=== PATIENT | female | born 1965 | race Two or more races ===

== ENCOUNTER 2016-03-30 11:58 | Emergency (ER) | payer BC ==
[~2016-03-30] VITALS: Ht 167.6 cm; Wt 102.1 kg
[~2016-03-30 11:58] MED LIST: ESTR0.3T PO; IBUP800T24 PO; LURA40TA OR; RANI1TAB4 PO
[2016-03-30] MEDS ORDERED: SODIUM CHLORIDE 0.9% 1,000 ML IV ONE (13:20)
[2016-03-30] MEDS ORDERED: cefTRIAXone 1GM/50ML D5W 50 ML IV ONE (13:30)
[2016-03-30 13:33] LABS: Urine RBC None Seen /hpf (0 - 4)
[2016-03-30 13:44] LABS: Basophils # (auto) 0 uL; Basophils % (auto) 0.3 % (0.0-2.0); Eosinophils # (auto) 0.1 uL; Eosinophils % (auto) 0.8 % (0.0-7.0); Hematocrit 42.6 % (36.0-46.0); Hemoglobin 14.6 g/dL (12.2-16.2); Lymphocytes # (auto) 2.3 uL; Lymphocytes % (auto) 20.5 % (10.0-50.0); Mean Corpuscular Hemoglobin 27.7 pg (28.0-32.0); Mean Corpuscular Hgb Conc. 34.2 g/dL (32.0-36.0); Mean Corpuscular Volume 81.1 fL (80.0-100.0); Mean Platelet Volume 8.6 fL (7.4-10.4); Monocytes # (auto) 0.7 uL; Neutrophils % (auto) 72.4 % (37.0-80.0); Platelet Count (auto) 361 10^3/uL (140-450); Red Cell Distribution Width 13.4 % (11.6-16.0); White Blood Cell 11.1 10^3/uL (4.4-10.8)
[2016-03-30 14:06] LABS: Albumin 3.4 g/dL (3.4-5.0); BUN/Creatinine Ratio 12.8; Calcium 8.7 mg/dL (8.5-10.1); Potassium 3.5 mmol/L (3.5-5.1)
[2016-03-30 14:09] LABS: Bilirubin, Total 0.5 mg/dL (0.2-1.0); Total Protein 7.2 g/dL (6.4-8.2)
[2016-03-30 14:23] LABS: Urine Bilirubin Negative (Negative); Urine Blood Negative /uL (Negative); Urine Color Yellow (Yellow); Urine Glucose Normal (Normal); Urine Ketone Negative (Negative); Urine Nitrite Negative (Negative); Urine Squamous Epithelial Cell FEW /hpf (<5); Urine Urobilinogen Normal (Negative)
[2016-03-30 14:25] VITALS: BP 121/74
[2016-03-30] MEDS ORDERED: TETANUS-DIPTH-ACEL PERTUSSIS 0.5ML SYRG IM ONE (15:00)
== END 2016-03-30 15:26 | disposition home or self-care (01) ==
LOC: ER 11:58
DX: L03.114 Cellulitis of left upper limb (principal); Z88.6 Allergy status to analgesic agent; Z79.899 Other long term (current) drug therapy
CPT/HCPCS: 36415; 80053; 81001; 85025; 87040; 90471; 90715; 96365; 99285; J0696; J7030

== ENCOUNTER 2020-10-28 21:42 | Inpatient (IN) | payer BC ==
[~2020-10-28] VITALS: Ht 172.7 cm; Wt 102.7 kg
[~2020-10-28 21:42] MED LIST changes: -IBUP800T24 PO; +IBUP800T27 PO; -RANI1TAB4 PO; +RANI75TA65 PO
[2020-10-28] MEDS ORDERED: dilTIAZem 25 MG/5 ML VIAL IV ONE (22:15)
[2020-10-28] MEDS ORDERED: METOPROLOL TARTRATE 1MG/1ML-5ML VIAL IV ONE (22:30)
[2020-10-28 22:40] LABS: Basophils # (auto) 0 10 ^3/uL (0-0.2); Basophils % (auto) 0.3 % (0.0-2.0); Eosinophils # (auto) 0.2 10 ^3/uL (0-0.8); Eosinophils % (auto) 1.6 % (0.0-7.0); Hematocrit 41.8 % (36.0-46.0); Hemoglobin 13.8 g/dL (12.2-16.2); Lymphocytes # (auto) 3.3 10 ^3/uL (0.4-5.4); Lymphocytes % (auto) 32.6 % (10.0-50.0); Mean Corpuscular Hemoglobin 27.3 pg (28.0-32.0); Mean Corpuscular Volume 82.7 fL (80.0-100.0); Monocytes # (auto) 0.5 10 ^3/uL (0-1.3); Monocytes % (auto) 5.2 % (0.0-12.0); Neutrophils # (auto) 6.1 10 ^3/uL (1.6-8.6); Neutrophils % (auto) 60.3 % (37.0-80.0); Nucleated Red Blood Cells % 0.1 %; Red Blood Cells 5.05 10^6/uL (4.0-5.20); Red Cell Distribution Width 13.8 % (11.8-14.3); White Blood Cell 10.2 10^3/uL (4.4-10.8)
[2020-10-28 22:57] LABS: Anion Gap 10 (5-15); Blood Urea Nitrogen 18 mg/dL (7-18); Calcium 8.6 mg/dL (8.5-10.1); Carbon Dioxide 21 mmol/L (21-32); Chloride 113 mmol/L (98-107); Glucose 155 mg/dL (74-106); Potassium 3.4 mmol/L (3.5-5.1); Sodium 144 mmol/L (136-145)
[2020-10-28 22:59] LABS: Alanine Aminotransferase 51 U/L (13-56); Aspartate Aminotransferase 34 U/L (15-37); BUN/Creatinine Ratio 20.9; GFR African American 87 mL/min; GFR Non-African American 72 mL/min
[2020-10-28 23:03] LABS: Alkaline Phosphatase 133 U/L (45-117); Bilirubin, Total 0.7 mg/dL (0.2-1.0); Total Protein 6.8 g/dL (6.4-8.2)
[2020-10-28] MEDS ORDERED: ESMOLOL HCL-NS 10MG/ML 250 ML IV SCH (23:30)
[2020-10-28] MEDS ORDERED: ESMOLOL HCL (10MG/ML) 10 ML VIAL IV ONE (23:30)
[2020-10-29 00:21] LABS: Urine Bacteria NONE SEEN /hpf (None Seen); Urine Blood TRACE /uL (Negative); Urine Specific Gravity 1.006 (1.001-1.035); Urine WBC 4 /hpf (0 - 5)
[2020-10-29] MEDS ORDERED: ACETAMINOPHEN 325 MG TAB PO ONE (03:45)
[2020-10-29] MEDS ORDERED: AMIODARONE 450mg/250ml AE 250 ML IV SCH (08:45)
[2020-10-29] MEDS ORDERED: ASPirin 81 mg TAB PO ONE (09:00)
[2020-10-29] MEDS ORDERED: NITROGLYCERIN 0.4 MG SL TAB SL PRN (09:00)
[2020-10-29] MEDS ORDERED: MORPHINE SULFATE INJECTION 2 MG/ML SYRG IV PRN (09:00)
[2020-10-29] MEDS ORDERED: POTASSIUM CHL 20 Meq TABLET PO ONE (09:00)
[2020-10-29] MEDS: ALPRAZolam 0.25 MG TAB PO PRN ×2 (09:17→22:13)
[2020-10-29 09:35] LABS: Cholesterol 143 mg/dL (< 200)
[2020-10-29 09:38] LABS: HDL Cholesterol 44 mg/dL (40-59); LDL Cholesterol 85 mg/dL (< 100); Triglycerides 113 mg/dL (< 150)
[2020-10-29] MEDS: METOPROLOL SUCCINATE XL 50 MG TAB PO SCH (10:05)
[2020-10-29] MEDS: FAMOTIDINE 20 MG TAB PO SCH (10:05)
[2020-10-29] MEDS: AMIODARONE 450mg/250ml AE 250 ML IV SCH ×2 (13:34→15:13)
[2020-10-29] MEDS ORDERED: AMIODARONE HCL 200 MG TAB PO ONE (15:30)
[2020-10-29 20:30] VITALS: BP 134/74
[2020-10-29] MEDS ORDERED: ATOR20TA PO (21:34)
[2020-10-29] MEDS ORDERED: TEMA30CA PO (21:34)
[2020-10-29] MEDS ORDERED: ALPR0.254 PO (21:34)
[2020-10-29] MEDS ORDERED: TRAM50TA2 PO (21:34)
[2020-10-29 22:00] VITALS: BP 134/74
[2020-10-30 05:00] VITALS: BP 121/73
[2020-10-30] MEDS: HYDROcodone-ACET 5/325MG TAB PO PRN ×2 (05:28→11:10)
[2020-10-30 07:12] LABS: Basophils # (auto) 0 10 ^3/uL (0-0.2); Basophils % (auto) 0.3 % (0.0-2.0); Eosinophils # (auto) 0.2 10 ^3/uL (0-0.8); Eosinophils % (auto) 2.7 % (0.0-7.0); Hematocrit 39.7 % (36.0-46.0); Hemoglobin 13.4 g/dL (12.2-16.2); Lymphocytes # (auto) 2.4 10 ^3/uL (0.4-5.4); Lymphocytes % (auto) 29.8 % (10.0-50.0); Mean Corpuscular Hemoglobin 27.5 pg (28.0-32.0); Mean Corpuscular Hgb Conc. 33.7 g/dL (32.0-36.0); Mean Corpuscular Volume 81.6 fL (80.0-100.0); Monocytes # (auto) 0.4 10 ^3/uL (0-1.3); Monocytes % (auto) 4.6 % (0.0-12.0); Neutrophils # (auto) 5.1 10 ^3/uL (1.6-8.6); Neutrophils % (auto) 62.6 % (37.0-80.0); Nucleated Red Blood Cells % 0.1 %; Red Blood Cells 4.87 10^6/uL (4.0-5.20); Red Cell Distribution Width 13.6 % (11.8-14.3); White Blood Cell 8.1 10^3/uL (4.4-10.8)
[2020-10-30 07:21] LABS: BUN/Creatinine Ratio 22.4; Calcium 9.3 mg/dL (8.5-10.1)
[2020-10-30] MEDS ORDERED: ADENOSINE 88 MG in GIVE UN-DILUTED 0 ML IV STA (08:24)
[2020-10-30 09:00] VITALS: BP 134/62
[2020-10-30] MEDS: FAMOTIDINE 20 MG TAB PO SCH (11:10)
[2020-10-30] MEDS: ASPirin 81 mg TAB PO SCH (11:10)
[2020-10-30] MEDS: METOPROLOL SUCCINATE XL 50 MG TAB PO SCH (11:10)
[2020-10-30] MEDS: AMIODARONE HCL 200 MG TAB PO SCH ×2 (11:10→21:24)
[2020-10-30] MEDS: ALPRAZolam 0.25 MG TAB PO PRN (11:12)
[2020-10-30 13:00] VITALS: BP 99/65
[2020-10-30] MEDS ORDERED: ONDANSETRON HCL 4 MG/2 ML VIAL IV PRN (16:00)
[2020-10-30 17:00] VITALS: BP 111/63
[2020-10-31 05:00] VITALS: BP 102/66
[2020-10-31] MEDS: HYDROcodone-ACET 5/325MG TAB PO PRN (08:30)
[2020-10-31] MEDS: METOPROLOL SUCCINATE XL 50 MG TAB PO SCH (09:08)
[2020-10-31] MEDS: FAMOTIDINE 20 MG TAB PO SCH (09:08)
[2020-10-31] MEDS: AMIODARONE HCL 200 MG TAB PO SCH (09:09)
[2020-10-31] MEDS: ASPirin 81 mg TAB PO SCH (09:09)
[2020-10-31 09:13] VITALS: BP 100/49
[2020-10-31 12:50] VITALS: BP 120/54
[2020-10-31] MEDS ORDERED: AMIO200T33 PO (16:04)
[2020-10-31] MEDS ORDERED: METO25TA36 PO (16:04)
[2020-10-31] MEDS ORDERED: ASPI-378 PO (16:04)
[2020-10-31 16:42] VITALS: BP 127/68
== END 2020-10-31 18:00 | disposition home or self-care (01) | DRG 310 ==
LOC: EDBD 21:42 → ER 21:48 → TELE 10-29 08:55 → TELE-WESTW 10-29 20:20
PROVIDERS: ADMIT Nurse Practitioner Acute Care; ATTEND Internal Medicine
DX: I48.91 Unspecified atrial fibrillation (principal); E66.9 Obesity, unspecified; E78.5 Hyperlipidemia, unspecified; E87.6 Hypokalemia; E88.09 Other disorders of plasma-protein metabolism, not elsewhere classified; F41.1 Generalized anxiety disorder; G89.29 Other chronic pain; Z20.822 Contact with and (suspected) exposure to COVID-19; Z90.710 Acquired absence of both cervix and uterus; Z68.34 Body mass index [BMI] 34.0-34.9, adult; Z85.72 Personal history of non-Hodgkin lymphomas
CPT/HCPCS: 36415; 71045; 78452; 80048; 80053; 80061; 81001; 83036; 83735; 83880; 84443; 84484; 85025; 85379; 87426; 93005; 93017; 93306; 96365; 96366; 96375; 99291; G0378; J0153; J2405

== ENCOUNTER 2022-03-02 08:35 | Emergency (ER) | payer BC ==
[~2022-03-02] VITALS: Ht 167.6 cm; Wt 115.2 kg
[~2022-03-02 08:35] MED LIST changes: +ALPR0.254 PO; +ASPI-378 PO; +ATOR20TA PO; -ESTR0.3T PO; -LURA40TA OR; -RANI75TA65 PO; +TEMA30CA PO; +TRAM50TA2 PO
[2022-03-02 09:21] LABS: Basophils # (auto) 0 10 ^3/uL (0-0.2); Basophils % (auto) 0.5 % (0.0-2.0); Eosinophils # (auto) 0.1 10 ^3/uL (0-0.8); Hematocrit 41.5 % (36.0-46.0); Lymphocytes % (auto) 24.7 % (10.0-50.0); Monocytes # (auto) 0.4 10 ^3/uL (0-1.3)
[2022-03-02 09:22] LABS: Eosinophils % (auto) 1.6 % (0.0-7.0); Hemoglobin 13.6 g/dL (12.2-16.2); Lymphocytes # (auto) 2.1 10 ^3/uL (0.4-5.4); Mean Corpuscular Hemoglobin 26.6 pg (28.0-32.0); Mean Corpuscular Hgb Conc. 32.7 g/dL (32.0-36.0); Mean Corpuscular Volume 81.3 fL (80.0-100.0); Monocytes % (auto) 4.4 % (0.0-12.0); Neutrophils % (auto) 68.8 % (37.0-80.0); Nucleated Red Blood Cells % 0.1 %; Red Blood Cells 5.11 10^6/uL (4.0-5.20); Red Cell Distribution Width 14.6 % (11.8-14.3); White Blood Cell 8.7 10^3/uL (4.4-10.8)
[2022-03-02 09:36] LABS: Albumin 3.4 g/dL (3.4-5.0); Calcium 8.7 mg/dL (8.5-10.1); Potassium 3.6 mmol/L (3.5-5.1)
[2022-03-02 09:39] LABS: BUN/Creatinine Ratio 15.4; Bilirubin, Total 0.7 mg/dL (0.2-1.0)
[2022-03-02 10:16] LABS: Urine Bacteria FEW /hpf (None Seen); Urine Blood Negative /uL (Negative); Urine Specific Gravity 1.007 (1.001-1.035); Urine WBC 14 /hpf (0 - 5)
[2022-03-02] MEDS ORDERED: CEPH-322 PO (17:01)
[2022-03-02 17:20] VITALS: BP 132/60
== END 2022-03-02 17:24 | disposition home or self-care (01) ==
LOC: ER 08:35
DX: S39.011A Strain of muscle, fascia and tendon of abdomen, initial encounter (principal); N39.0 Urinary tract infection, site not specified; I48.91 Unspecified atrial fibrillation; E78.5 Hyperlipidemia, unspecified; Z90.49 Acquired absence of other specified parts of digestive tract; Z90.710 Acquired absence of both cervix and uterus; X58.XXXA Exposure to other specified factors, initial encounter; Y93.89 Activity, other specified; Y92.89 Other specified places as the place of occurrence of the external cause; Y99.8 Other external cause status
CPT/HCPCS: 36415; 71260; 74177; 80053; 81001; 85025; 93005; 99285; Q9967

== ENCOUNTER 2022-09-09 13:02 | Inpatient (IN) | payer BC ==
[~2022-09-09] VITALS: Ht 167.6 cm; Wt 111.0 kg
[~2022-09-09 13:02] MED LIST changes: +CEPH250C PO; +IBUP-1456 PO; -IBUP800T27 PO
[2022-09-09 13:30] LABS: Eosinophils # (auto) 0.1 10 ^3/uL (0-0.8); Monocytes # (auto) 0.7 10 ^3/uL (0-1.3)
[2022-09-09 13:34] LABS: Basophils # (auto) 0 10 ^3/uL (0-0.2); Basophils % (auto) 0.3 % (0.0-2.0); Eosinophils % (auto) 1.1 % (0.0-7.0); Hematocrit 40.5 % (36.0-46.0); Hemoglobin 13.6 g/dL (12.2-16.2); Lymphocytes # (auto) 3.5 10 ^3/uL (0.4-5.4); Lymphocytes % (auto) 30.1 % (10.0-50.0); Mean Corpuscular Hemoglobin 26.2 pg (28.0-32.0); Mean Corpuscular Hgb Conc. 33.5 g/dL (32.0-36.0); Mean Corpuscular Volume 78.3 fL (80.0-100.0); Monocytes % (auto) 6.1 % (0.0-12.0); Neutrophils # (auto) 7.2 10 ^3/uL (1.6-8.6); Neutrophils % (auto) 62.4 % (37.0-80.0); Nucleated Red Blood Cells % 0.2 %; Red Blood Cells 5.17 10^6/uL (4.0-5.20); Red Cell Distribution Width 15.1 % (11.8-14.3); White Blood Cell 11.5 10^3/uL (4.4-10.8)
[2022-09-09 13:49] LABS: Albumin 3.4 g/dL (3.4-5.0); Magnesium 2.3 mg/dL (1.6-2.6); Potassium 3.6 mmol/L (3.5-5.1)
[2022-09-09 13:51] LABS: BUN/Creatinine Ratio 13.6 (10.0-20.0)
[2022-09-09 16:04] LABS: Urine Bacteria NONE SEEN /hpf (None Seen); Urine Blood Negative /uL (Negative); Urine Specific Gravity 1.006 (1.001-1.035); Urine WBC 1 /hpf (0 - 5)
[2022-09-09] MEDS ORDERED: METOPROLOL TARTRATE 25 MG TAB PO ONE (18:00)
[2022-09-09] MEDS ORDERED: MORPHINE SULFATE INJ 2 MG/ml SYRG IV PRN (18:00)
[2022-09-09] MEDS ORDERED: ENOXAPARIN SOD 60 MG/0.6 ML SYRINGE SC ONE (18:00)
[2022-09-09] MEDS ORDERED: NITROGLYCERIN 0.4 MG SL TAB SL PRN (18:00)
[2022-09-09 18:26] LABS: Cholesterol 152 mg/dL (< 200)
[2022-09-09 18:29] LABS: HDL Cholesterol 43 mg/dL (40-59); LDL Cholesterol 78 mg/dL (< 100); Triglycerides 254 mg/dL (< 150)
[2022-09-09] MEDS: SODIUM CHLORIDE 0.9% 1,000 ML IV SCH (19:56)
[2022-09-09 20:05] VITALS: PULSE 81; RESP 20; O2SAT 96
[2022-09-09] MEDS: METOPROLOL TARTRATE 25 MG TAB PO SCH (22:00)
[2022-09-09] MEDS ORDERED: ATORVASTATIN 20 MG TAB PO SCH (22:00)
[2022-09-09 22:12] VITALS: BP 111/58; PULSE 70; RESP 18; TEMP 98; O2SAT 97
[2022-09-10] VITALS (7 sets, daily range): BP systolic 105–116; BP diastolic 47–81; PULSE 68–82; RESP 16–18; TEMP 97.8–98.4; O2SAT 96–97
[2022-09-10 07:02] LABS: Basophils # (auto) 0 10 ^3/uL (0-0.2); Basophils % (auto) 0.4 % (0.0-2.0); Eosinophils # (auto) 0.1 10 ^3/uL (0-0.8); Eosinophils % (auto) 1.3 % (0.0-7.0); Hematocrit 39.4 % (36.0-46.0); Hemoglobin 13.3 g/dL (12.2-16.2); Lymphocytes # (auto) 2.3 10 ^3/uL (0.4-5.4); Lymphocytes % (auto) 30.6 % (10.0-50.0); Mean Corpuscular Hemoglobin 26.7 pg (28.0-32.0); Mean Corpuscular Hgb Conc. 33.7 g/dL (32.0-36.0); Mean Corpuscular Volume 79.2 fL (80.0-100.0); Monocytes # (auto) 0.5 10 ^3/uL (0-1.3); Monocytes % (auto) 6.2 % (0.0-12.0); Neutrophils # (auto) 4.6 10 ^3/uL (1.6-8.6); Neutrophils % (auto) 61.5 % (37.0-80.0); Red Blood Cells 4.97 10^6/uL (4.0-5.20); Red Cell Distribution Width 15.2 % (11.8-14.3); White Blood Cell 7.4 10^3/uL (4.4-10.8)
[2022-09-10 07:20] LABS: Potassium 3.9 mmol/L (3.5-5.1)
[2022-09-10 07:27] LABS: Bilirubin, Total 1.3 mg/dL (0.2-1.0); Calcium 8.4 mg/dL (8.5-10.1); Total Protein 6.6 g/dL (6.4-8.2)
[2022-09-10] MEDS ORDERED: ADENOSINE 95 MG in GIVE UN-DILUTED 0 ML IV ONE (08:00)
[2022-09-10] MEDS ORDERED: ENOXAPARIN SOD 60 MG/0.6 ML SYRINGE SC SCH (08:00)
[2022-09-10] MEDS ORDERED: ASPirin-EC 81 mg tab PO SCH (10:00)
[2022-09-10] MEDS: METOPROLOL TARTRATE 25 MG TAB PO SCH (10:00)
[2022-09-10] MEDS: SODIUM CHLORIDE 0.9% 1,000 ML IV SCH (10:28)
[2022-09-10] MEDS: ACETAMINOPHEN 325 MG TAB PO PRN (11:14)
[2022-09-10 11:31] LABS: Cholesterol 135 mg/dL (< 200); HDL Cholesterol 41 mg/dL (40-59); LDL Cholesterol 71 mg/dL (< 100); Triglycerides 211 mg/dL (< 150)
[2022-09-10] MEDS ORDERED: ATORVASTATIN 20 MG TAB PO SCH (22:00)
[2022-09-11 05:00] VITALS: BP 97/42; PULSE 74; RESP 18; TEMP 97.9; O2SAT 96
[2022-09-11] MEDS: ACETAMINOPHEN 325 MG TAB PO PRN (05:47)
[2022-09-11 06:34] LABS: Potassium 3.7 mmol/L (3.5-5.1)
[2022-09-11 06:43] LABS: Albumin 3.1 g/dL (3.4-5.0); Calcium 8.8 mg/dL (8.5-10.1); Magnesium 2.2 mg/dL (1.6-2.6); Total Protein 6.7 g/dL (6.4-8.2)
[2022-09-11 07:13] LABS: Basophils # (auto) 0 10 ^3/uL (0-0.2); Basophils % (auto) 0.5 % (0.0-2.0); Eosinophils # (auto) 0.1 10 ^3/uL (0-0.8); Hemoglobin 12.9 g/dL (12.2-16.2); Mean Corpuscular Hemoglobin 26.8 pg (28.0-32.0); Monocytes # (auto) 0.4 10 ^3/uL (0-1.3); Neutrophils # (auto) 4.7 10 ^3/uL (1.6-8.6)
[2022-09-11 07:15] LABS: Eosinophils % (auto) 1.5 % (0.0-7.0); Hematocrit 38.2 % (36.0-46.0); Lymphocytes # (auto) 2.2 10 ^3/uL (0.4-5.4); Lymphocytes % (auto) 29.7 % (10.0-50.0); Mean Corpuscular Hgb Conc. 33.8 g/dL (32.0-36.0); Mean Corpuscular Volume 79.4 fL (80.0-100.0); Monocytes % (auto) 5.5 % (0.0-12.0); Neutrophils % (auto) 62.8 % (37.0-80.0); Nucleated Red Blood Cells % 0.1 %; Red Cell Distribution Width 15.2 % (11.8-14.3); White Blood Cell 7.4 10^3/uL (4.4-10.8)
[2022-09-11 08:00] VITALS: BP 117/56; PULSE 76; PULSE 91; RESP 16; TEMP 97.9; O2SAT 95
[2022-09-11] MEDS ORDERED: ENOXAPARIN SOD 40 MG/0.4 ML SYRINGE SC SCH (10:00)
[2022-09-11] MEDS ORDERED: METOPROLOL SUCCINATE XL 50 MG TAB PO SCH (10:00)
[2022-09-11 11:37] VITALS: BP 116/47; PULSE 68; TEMP 36.6
[2022-09-11 12:17] VITALS: BP 116/47; PULSE 68; TEMP 36.6
== END 2022-09-11 12:03 | disposition home or self-care (01) | DRG 281 ==
LOC: EDUNIT# 13:02 → ER 13:02 → EDBD 13:02 → TELE 17:55 → TELE-CENTR 21:13
PROVIDERS: ADMIT Internal Medicine; ATTEND Internal Medicine
DX: I49.9 Cardiac arrhythmia, unspecified (principal); I21.A1 Myocardial infarction type 2; Z68.41 Body mass index [BMI] 40.0-44.9, adult; E66.01 Morbid (severe) obesity due to excess calories; E78.5 Hyperlipidemia, unspecified; F32.A Depression, unspecified; I10 Essential (primary) hypertension; I48.0 Paroxysmal atrial fibrillation; R73.03 Prediabetes; Z79.82 Long term (current) use of aspirin; Z80.0 Family history of malignant neoplasm of digestive organs; Z80.7 Family history of other malignant neoplasms of lymphoid, hematopoietic and related tissues; Z83.3 Family history of diabetes mellitus; Z90.710 Acquired absence of both cervix and uterus; Z90.49 Acquired absence of other specified parts of digestive tract; Z85.72 Personal history of non-Hodgkin lymphomas
CPT/HCPCS: 36415; 71045; 78452; 80053; 80061; 81001; 82306; 82607; 83036; 83735; 83880; 84443; 84484; 85025; 85379; 93005; 93017; 93306; 96372; G0378; J0153

== ENCOUNTER 2022-10-21 16:58 | Emergency (ER) | payer BC ==
[~2022-10-21] VITALS: Ht 167.6 cm; Wt 120.0 kg
[2022-10-21 18:14] LABS: Basophils % (auto) 0.5 % (0.0-2.0); Eosinophils # (auto) 0.1 10 ^3/uL (0-0.8)
[2022-10-21 18:15] LABS: Basophils # (auto) 0 10 ^3/uL (0-0.2); Hematocrit 39.2 % (36.0-46.0); Hemoglobin 13.3 g/dL (12.2-16.2); Lymphocytes # (auto) 2.1 10 ^3/uL (0.4-5.4); Lymphocytes % (auto) 20.9 % (10.0-50.0); Mean Corpuscular Hemoglobin 26.8 pg (28.0-32.0); Mean Corpuscular Volume 78.9 fL (80.0-100.0); Monocytes # (auto) 0.6 10 ^3/uL (0-1.3); Monocytes % (auto) 5.8 % (0.0-12.0); Neutrophils # (auto) 7.1 10 ^3/uL (1.6-8.6); Neutrophils % (auto) 71.8 % (37.0-80.0); Red Blood Cells 4.97 10^6/uL (4.0-5.20); White Blood Cell 9.9 10^3/uL (4.4-10.8)
[2022-10-21 18:34] LABS: Alanine Aminotransferase 32 U/L (7-40); Albumin 4.1 g/dL (3.2-4.8); Alkaline Phosphatase 131 U/L (46-116); Anion Gap 5 (5-15); Aspartate Aminotransferase 22 U/L (13-40); BUN/Creatinine Ratio 17.5 (10.0-20.0); Bilirubin, Total 1.1 mg/dL (0.2-1.0); Blood Urea Nitrogen 17 mg/dL (9-23); Calcium 9.3 mg/dL (8.7-10.4); Carbon Dioxide 27 mmol/L (20-30); Chloride 107 mmol/L (98-107); Glucose 117 mg/dL (74-106); Potassium 4.4 mmol/L (3.5-5.1); Sodium 139 mmol/L (136-145); Total Protein 6.6 g/dL (5.7-8.2)
[2022-10-21 18:45] LABS: INR 1.05 (0.9-1.15); Partial Thromboplastin Time 28.9 SEC (24.5-34.5)
[2022-10-21 21:20] LABS: Urine Bacteria FEW /hpf (None Seen); Urine Blood Negative /uL (Negative); Urine Clarity Clear (Clear); Urine Color Yellow (Yellow); Urine Mucus FEW (None Seen); Urine Protein, UAD TRACE (Negative); Urine Specific Gravity 1.029 (1.001-1.035); Urine WBC 1 /hpf (0 - 5); Urine pH 6.5 (5.0-8.0)
[2022-10-21] MEDS ORDERED: ASPirin 81 mg TAB PO ONE (22:00)
[2022-10-21 23:00] VITALS: BP 122/67; PULSE 76; RESP 18; TEMP 98.2; O2SAT 99
== END 2022-10-21 23:10 | disposition home or self-care (01) ==
LOC: EDBD 16:58 → ER 16:58
DX: R07.89 Other chest pain (principal); I48.91 Unspecified atrial fibrillation; F32.9 Major depressive disorder, single episode, unspecified; E78.5 Hyperlipidemia, unspecified; Z90.710 Acquired absence of both cervix and uterus; Z90.49 Acquired absence of other specified parts of digestive tract; Z79.899 Other long term (current) drug therapy; Z79.82 Long term (current) use of aspirin; Z88.8 Allergy status to other drugs, medicaments and biological substances
CPT/HCPCS: 36415; 71045; 80053; 81001; 83880; 84443; 84484; 85025; 85610; 85730; 93005

== ENCOUNTER 2022-10-26 05:37 | Emergency (ER) | payer BC ==
[~2022-10-26] VITALS: Ht 167.6 cm; Wt 111.1 kg
[2022-10-26 06:15] LABS: Basophils # (auto) 0 10 ^3/uL (0-0.2); Eosinophils # (auto) 0.1 10 ^3/uL (0-0.8); Mean Corpuscular Hemoglobin 26.8 pg (28.0-32.0); Monocytes # (auto) 0.5 10 ^3/uL (0-1.3)
[2022-10-26 06:18] LABS: Basophils % (auto) 0.4 % (0.0-2.0); Eosinophils % (auto) 1.2 % (0.0-7.0); Hematocrit 39.7 % (36.0-46.0); Hemoglobin 13.3 g/dL (12.2-16.2); Lymphocytes % (auto) 27.3 % (10.0-50.0); Mean Corpuscular Hgb Conc. 33.6 g/dL (32.0-36.0); Mean Corpuscular Volume 79.9 fL (80.0-100.0); Monocytes % (auto) 4.3 % (0.0-12.0); Neutrophils # (auto) 7.4 10 ^3/uL (1.6-8.6); Neutrophils % (auto) 66.8 % (37.0-80.0); Red Blood Cells 4.97 10^6/uL (4.0-5.20); Red Cell Distribution Width 14.7 % (11.8-14.3); White Blood Cell 11.1 10^3/uL (4.4-10.8)
[2022-10-26 06:27] LABS: INR 1.06 (0.9-1.15); Partial Thromboplastin Time 27.8 SEC (24.5-34.5); Prothrombin Time 11.1 sec (9.3-11.8)
[2022-10-26] MEDS ORDERED: ONDANSETRON HCL 4 MG/2 ML VIAL IV ONE (06:30)
[2022-10-26] MEDS ORDERED: MORPHINE SULFATE 4 MG/ML SYR/VIAL IV ONE (06:30)
[2022-10-26 06:36] LABS: Alanine Aminotransferase 30 U/L (7-40); Alkaline Phosphatase 132 U/L (46-116); Anion Gap 7 (5-15); Aspartate Aminotransferase 22 U/L (13-40); BUN/Creatinine Ratio 15.7 (10.0-20.0); Bilirubin, Total 1.2 mg/dL (0.2-1.0); Blood Urea Nitrogen 13 mg/dL (9-23); Calcium 9.2 mg/dL (8.7-10.4); Carbon Dioxide 24 mmol/L (20-30); Chloride 105 mmol/L (98-107); Glucose 116 mg/dL (74-106); Magnesium 2.2 mg/dL (1.6-2.6); Potassium 3.9 mmol/L (3.5-5.1); Sodium 136 mmol/L (136-145); Total Protein 6.4 g/dL (5.7-8.2)
[2022-10-26] MEDS ORDERED: IOHEXOL 300 MG/ML 100ML BOTTLE IJ ONE (07:09)
[2022-10-26] MEDS ORDERED: SODIUM CHLORIDE 0.9% 1,000 ML IV ONE (07:30)
[2022-10-26 07:41] VITALS: PULSE 69; RESP 16; O2SAT 97
[2022-10-26] MEDS ORDERED: ZOFR4T PO (09:27)
[2022-10-26] MEDS ORDERED: FAMO20TA10 PO (09:27)
[2022-10-26] MEDS ORDERED: FAMOTIDINE (10MG/ML) 2ML VL IV ONE ×2 (09:30)
[2022-10-26 09:44] VITALS: BP 106/49; PULSE 60; RESP 16; TEMP 97.4; O2SAT 98
== END 2022-10-26 10:21 | disposition home or self-care (01) ==
LOC: EDBD 05:37 → ER 05:37
DX: K57.30 Diverticulosis of large intestine without perforation or abscess without bleeding (principal); K21.9 Gastro-esophageal reflux disease without esophagitis; Z90.49 Acquired absence of other specified parts of digestive tract; Z90.710 Acquired absence of both cervix and uterus; Z88.8 Allergy status to other drugs, medicaments and biological substances
CPT/HCPCS: 36415; 71045; 74177; 80053; 83690; 83735; 83880; 84484; 85025; 85379; 85610; 85730; 93005; 96361; 96374; 96375; 99285; J2270; J2405; J3490; J7030; Q9967

== ENCOUNTER 2022-12-19 10:20 | Emergency (ER) | payer BC ==
[~2022-12-19] VITALS: Ht 167.6 cm; Wt 115.0 kg
[~2022-12-19 10:20] MED LIST changes: +FAMO20TA10 PO; +ZOFR4T PO
[2022-12-19 11:16] VITALS: BP 150/74; PULSE 88; RESP 18; TEMP 98; O2SAT 97
[2022-12-19] MEDS ORDERED: KETOROLAC TROMETH 60MG/2ML VIAL IM ONE (11:30)
[2022-12-19] MEDS ORDERED: MELO7.5T7 PO (11:37)
== END 2022-12-19 11:38 | disposition home or self-care (01) ==
LOC: ER 10:20
DX: S83.8X2A Sprain of other specified parts of left knee, initial encounter (principal); M17.12 Unilateral primary osteoarthritis, left knee; E78.5 Hyperlipidemia, unspecified; I48.91 Unspecified atrial fibrillation; Z90.49 Acquired absence of other specified parts of digestive tract; Z90.710 Acquired absence of both cervix and uterus; W19.XXXA Unspecified fall, initial encounter; Y93.89 Activity, other specified; Y92.89 Other specified places as the place of occurrence of the external cause; Y99.8 Other external cause status
CPT/HCPCS: 73562; 96372; 99283; J1885

== ENCOUNTER 2023-10-21 08:01 | Inpatient (IN) | payer BC ==
[~2023-10-21] VITALS: Ht 167.6 cm; Wt 120.0 kg
[2023-10-21] VITALS (11 sets, daily range): BP systolic 129–145; BP diastolic 61–68; PULSE 91–108; RESP 18–20; TEMP 97.8–97.9; O2SAT 94–100
[~2023-10-21 08:01] MED LIST changes: +MELO7.5T7 PO
[2023-10-21] MEDS: ALBUTEROL SULF 2.5 MG/0.5ML(0.5%) NEB SOLN ONE (08:24)
[2023-10-21] MEDS: ALBUTEROL SULF 2.5 MG/0.5ML(0.5%) NEB SOLN NEB ONE ×2 (08:44→15:31)
[2023-10-21] MEDS: SODIUM CHLORIDE 0.9% 1,000 ML IV ONE (09:09)
[2023-10-21] MEDS: methylPREDNISolone SOD SUCC 125 MG/2 ML VL IV ONE (09:13)
[2023-10-21 09:23] LABS: Basophils # (auto) 0 10 ^3/uL (0-0.2); Basophils % (auto) 0.1 % (0.0-2.0); Eosinophils # (auto) 0 10 ^3/uL (0-0.8); Hematocrit 42.2 % (36.0-46.0); Hemoglobin 14.3 g/dL (12.2-16.2); Lymphocytes # (auto) 1.9 10 ^3/uL (0.4-5.4); Lymphocytes % (auto) 17.2 % (10.0-50.0); Mean Corpuscular Hemoglobin 27.2 pg (28.0-32.0); Mean Corpuscular Hgb Conc. 33.8 g/dL (32.0-36.0); Mean Corpuscular Volume 80.4 fL (80.0-100.0); Monocytes # (auto) 0.2 10 ^3/uL (0-1.3); Monocytes % (auto) 1.7 % (0.0-12.0); Neutrophils # (auto) 9.1 10 ^3/uL (1.6-8.6); Platelet Count (auto) 360 10^3/uL (140-450); Red Blood Cells 5.25 10^6/uL (4.0-5.20); Red Cell Distribution Width 14.8 % (11.8-14.3); White Blood Cell 11.2 10^3/uL (4.4-10.8)
[2023-10-21] MEDS: MAGNESIUM SULFATE 1GM/100ML 100 ML IV SCH (09:33)
[2023-10-21 09:38] LABS: Chloride 107 mmol/L (98-107); Potassium 3.9 mmol/L (3.5-5.1); Sodium 138 mmol/L (136-145)
[2023-10-21 09:39] LABS: Anion Gap 10 (5-15); Carbon Dioxide 21 mmol/L (20-30)
[2023-10-21 09:44] LABS: Blood Urea Nitrogen 12 mg/dL (9-23); Glucose 142 mg/dL (74-106)
[2023-10-21 09:45] LABS: Magnesium 2.2 mg/dL (1.6-2.6)
[2023-10-21] MEDS ORDERED: PRED1PAK9 PO (10:12)
[2023-10-21] MEDS ORDERED: ALBU0.084 NEB (10:12)
[2023-10-21] MEDS ORDERED: DOCUSATE SOD 100 MG CAP PO PRN (12:30)
[2023-10-21] MEDS ORDERED: NITROGLYCERIN 0.4 MG SL TAB SL PRN (12:30)
[2023-10-21] MEDS ORDERED: ONDANSETRON HCL 4 MG/2 ML VIAL IV PRN (12:30)
[2023-10-21] MEDS: FAMOTIDINE (10MG/ML) 2ML VL IV ONE (13:56)
[2023-10-21] MEDS: SODIUM CHLORIDE 0.9% 1,000 ML IV SCH (13:56)
[2023-10-21] MEDS: methylPREDNISolone SOD SUCC 125 MG/2 ML VL IV SCH (15:16)
[2023-10-21 15:23] LABS: INR 1.02 (0.9-1.15); Prothrombin Time 10.8 sec (9.3-11.8)
[2023-10-21] MEDS: IPRATROPIUM BROM 0.5 MG/2.5ML INH SOL NEB ONE (15:31)
[2023-10-21] MEDS ORDERED: ATOR40TA52 PO (18:09)
[2023-10-21] MEDS ORDERED: LORA-622 PO (18:12)
[2023-10-21] MEDS ORDERED: RANO500T3 PO (18:12)
[2023-10-21] MEDS ORDERED: METO25TA36 PO (18:12)
[2023-10-21] MEDS ORDERED: DULO60CA41 PO (18:12)
[2023-10-21] MEDS ORDERED: MONT-8 PO (18:12)
[2023-10-21] MEDS ORDERED: DICY10CA PO (18:12)
[2023-10-21] MEDS ORDERED: ISOS1TAB28 PO (18:12)
[2023-10-21] MEDS: IPRATROPIUM BROM 0.5 MG/2.5ML INH SOL NEB SCH (18:49)
[2023-10-21] MEDS: ALBUTEROL SULF 2.5 MG/0.5ML(0.5%) NEB SOLN NEB SCH (18:49)
[2023-10-21] MEDS ORDERED: ENOXAPARIN SOD 120 MG/0.8 ML SYRINGE SC SCH (22:00)
[2023-10-21] MEDS: MORPHINE SULFATE INJ 2 MG/ml SYRG IV PRN (23:13)
[2023-10-22] VITALS (18 sets, daily range): BP systolic 100–132; BP diastolic 39–69; PULSE 80–110; RESP 16–20; TEMP 97.5–99; O2SAT 94–100
[2023-10-22 08:29] LABS: Basophils # (auto) 0 10 ^3/uL (0-0.2); Basophils % (auto) 0.1 % (0.0-2.0); Eosinophils # (auto) 0 10 ^3/uL (0-0.8); Hematocrit 38.8 % (36.0-46.0); Hemoglobin 13.3 g/dL (12.2-16.2); Lymphocytes # (auto) 1.5 10 ^3/uL (0.4-5.4); Lymphocytes % (auto) 7.2 % (10.0-50.0); Mean Corpuscular Hemoglobin 27.7 pg (28.0-32.0); Mean Corpuscular Hgb Conc. 34.2 g/dL (32.0-36.0); Monocytes # (auto) 0.7 10 ^3/uL (0-1.3); Monocytes % (auto) 3.4 % (0.0-12.0); Neutrophils # (auto) 18.2 10 ^3/uL (1.6-8.6); Neutrophils % (auto) 89.3 % (37.0-80.0); Platelet Count (auto) 337 10^3/uL (140-450); Red Blood Cells 4.79 10^6/uL (4.0-5.20); Red Cell Distribution Width 15.2 % (11.8-14.3); White Blood Cell 20.4 10^3/uL (4.4-10.8)
[2023-10-22 08:39] LABS: Alanine Aminotransferase 32 U/L (7-40); Albumin 4.3 g/dL (3.2-4.8); Alkaline Phosphatase 123 U/L (46-116); Anion Gap 9 (5-15); Aspartate Aminotransferase 12 U/L (13-40); BUN/Creatinine Ratio 11.5 (10.0-20.0); Blood Urea Nitrogen 10 mg/dL (9-23); Calcium 9.4 mg/dL (8.7-10.4); Carbon Dioxide 21 mmol/L (20-30); Chloride 108 mmol/L (98-107); Glucose 170 mg/dL (74-106); Potassium 3.8 mmol/L (3.5-5.1); Sodium 138 mmol/L (136-145)
[2023-10-22 08:40] LABS: Bilirubin, Total 0.6 mg/dL (0.2-1.0)
[2023-10-22] MEDS: IBUPROFEN 600 MG TAB PO PRN (11:36)
[2023-10-22] MEDS: ATORVASTATIN 20 MG TAB PO SCH (11:37)
[2023-10-22] MEDS: ASPirin-EC 81 mg tab PO SCH (11:38)
[2023-10-22] MEDS: ENOXAPARIN SOD 40 MG/0.4 ML SYRINGE SC SCH (11:38)
[2023-10-22] MEDS: FAMOTIDINE (10MG/ML) 2ML VL IV SCH (11:38)
[2023-10-22] MEDS: ATORVASTATIN 20 MG TAB PO ONE (13:30)
[2023-10-22] MEDS: KETOROLAC TROMETH 30 MG/ML 1ML VIAL IV PRN (14:42)
[2023-10-22] MEDS ORDERED: METOPROLOL TARTRATE 25 MG TAB PO ONE (16:00)
[2023-10-22] MEDS: METOPROLOL SUCCINATE XL 50 MG TAB PO ONE (17:03)
[2023-10-22] MEDS: ALPRAZolam 0.25 MG TAB PO PRN (20:30)
[2023-10-23] VITALS (19 sets, daily range): BP systolic 102–131; BP diastolic 47–73; PULSE 55–108; RESP 16–19; TEMP 97.6–98.9; O2SAT 94–99
[2023-10-23] MEDS: DULoxetine HCL 30 MG CAP PO SCH (09:59)
[2023-10-23] MEDS: METOPROLOL SUCCINATE XL 50 MG TAB PO SCH (10:02)
[2023-10-23] MEDS ORDERED: ALPRAZolam 0.25 MG TAB PO PRN (14:30)
[2023-10-23] MEDS ORDERED: RANO500T3 PO (14:54)
[2023-10-23] MEDS: ISOSORBIDE MONONITRATE ER 60 MG TAB PO ONE (16:04)
[2023-10-23] MEDS: ACETYLCYSTEINE 10 %(100MG/ML) SOL 4ML NEB SCH (19:34)
[2023-10-23] MEDS: RANOLAZINE ER 500 MG TAB PO SCH (22:17)
[2023-10-23] MEDS: VALPROATE INJ 250 MG in SODIUM CHL 0.9% 50 ML IV SCH (22:23)
[2023-10-24] VITALS (20 sets, daily range): BP systolic 106–139; BP diastolic 45–66; PULSE 67–103; RESP 14–18; TEMP 97.8–98.7; O2SAT 92–100
[2023-10-24] MEDS: ISOSORBIDE MONONITRATE ER 60 MG TAB PO SCH (09:57)
[2023-10-25] VITALS (12 sets, daily range): BP systolic 137–147; BP diastolic 55–76; PULSE 85–102; RESP 15–20; TEMP 37.2; O2SAT 93–100
[2023-10-25] MEDS: HYDROcodone-ACET 5/325MG TAB PO ONE (03:33)
[2023-10-25] MEDS ORDERED: DOXY1CAP57 PO (12:38)
[2023-10-25] MEDS ORDERED: METH4PAK PO (12:38)
[2023-10-25] MEDS ORDERED: DIVA-92 PO (12:38)
[2023-10-25] MEDS ORDERED: ALBU1NEB5 IN (12:38)
[2023-10-25] MEDS ORDERED: ATORVASTATIN 20 MG TAB PO SCH (22:00)
== END 2023-10-25 14:49 | disposition home or self-care (01) | DRG 189 ==
LOC: ER 08:01 → TELE 12:40 → TELE-WESTW 17:09
PROVIDERS: ADMIT Nurse Practitioner Family; ATTEND Internal Medicine Geriatric Medicine
DX: J96.21 Acute and chronic respiratory failure with hypoxia (principal); J45.901 Unspecified asthma with (acute) exacerbation; E87.20 Acidosis, unspecified; Z68.41 Body mass index [BMI] 40.0-44.9, adult; D72.829 Elevated white blood cell count, unspecified; I48.91 Unspecified atrial fibrillation; E78.5 Hyperlipidemia, unspecified; F32.A Depression, unspecified; I10 Essential (primary) hypertension; E66.01 Morbid (severe) obesity due to excess calories; R73.03 Prediabetes; G43.909 Migraine, unspecified, not intractable, without status migrainosus; Z83.3 Family history of diabetes mellitus; Z90.49 Acquired absence of other specified parts of digestive tract; Z79.01 Long term (current) use of anticoagulants; Z90.710 Acquired absence of both cervix and uterus; I25.2 Old myocardial infarction; Z85.72 Personal history of non-Hodgkin lymphomas; Z80.7 Family history of other malignant neoplasms of lymphoid, hematopoietic and related tissues; Z80.0 Family history of malignant neoplasm of digestive organs
CPT/HCPCS: 36415; 70450; 71045; 80048; 80053; 83735; 83880; 84484; 85025; 85379; 85610; 93005; 93306; 94640; 94644; 96365; 96375; G0378; J1885; J3490

== ENCOUNTER 2024-06-24 11:56 | Emergency (ER) | payer BC ==
[~2024-06-24] VITALS: Ht 167.6 cm; Wt 116.9 kg
[~2024-06-24 11:56] MED LIST changes: +ALBU0.084 NEB; +ALBU1NEB5 IN; -ATOR20TA PO; +ATOR40TA52 PO; -CEPH250C PO; +DICY10CA PO; +DIVA-92 PO; +DOXY1CAP57 PO; +DULO60CA41 PO; +ISOS1TAB28 PO; +LORA-622 PO; +METH4PAK PO; +METO25TA36 PO; +MONT-8 PO; +PRED1PAK9 PO; +RANO500T3 PO
[2024-06-24 12:41] LABS: Urine Bacteria None Seen /hpf (None Seen)
[2024-06-24 12:50] LABS: Urine Blood TRACE /uL (Negative); Urine Clarity Clear (Clear); Urine Protein, UAD Negative (Negative); Urine Specific Gravity 1.007 (1.001-1.035); Urine Squamous Epithelial Cell None Seen /hpf (<5); Urine Urobilinogen Normal (Negative); Urine WBC 4 /HPF (0-5)
[2024-06-24 12:51] LABS: Urine Color Light-Yellow (Yellow)
--- NOTE | 2024-06-24 12:53 | ED.PDOC ---
GI ASSESSMENT HPI Comments 58-year-old female presents the ER with prior medical history of UTI, AFib, cancer, depression, high lipids; surgical history of cholecystectomy, hysterectomy, urethra repair and the chief complaint of abdominal pain. Patient reports on having epigastric pain which radiates to the right upper flank and to the mid back. Notes on having dark green stool, with nausea. Denies chills, fever, /V/D, SOB, CP. No other associated symptoms, modifiers, recent injuries or sick contacts present at this time. Chief Complaint: Abdominal Pain Time Seen by MD: 12:35 Primary Care Provider: Deborah Reviewed Notes: Nurses Notes, Medications, Allergies Allergies: Coded Allergies: Lansoprazole (Verified Allergy, Unknown, 03/08/15) Home Meds Active Scripts Albuterol Sulfate (Albuterol Sulfate (5 mg/ml) 0.5%) 1 Neb Neb, 1 NEB IN Q6HP PRN for 30 Days, #120 INH Prov:MELANIE BALDWIN MD 10/25/23 Doxycycline Monohydrate (Doxycycline Monohydrate) 100 Mg Cap, 1 CAP PO BID, #14 CAP Prov:MELANIE BALDWIN MD 10/25/23 Methylprednisolone (Medrol Dosepak) 4 Mg Harsh, 4 MG PO UD, #21 TAB UAD Prov:MELANIE BALDWIN MD 10/25/23 Divalproex Sodium (Depakote Er) 250 Mg Tab, 1 TAB PO QPM, #30 TAB 0 Refills Prov:MELANIE BALDWIN MD 10/25/23 Prednisone (Prednisone) 10 Mg Harsh, 20 MG PO BID for 10 Days, #20 PACK Prov:LALY ELSIE MD 10/21/23 Albuterol Sulfate (Albuterol Sulfate) 0.083 % Neb, 1 VIAL NEB Q4HPRN PRN, #50 VIAL Prov:LALY ELISE MD 10/21/23 Meloxicam (Meloxicam) 7.5 Mg Tab, 1 TAB PO TID, #30 TAB Prov:FAUSTINA GARCIAS 12/19/22 Famotidine (PEPCID TABLET) 20 Mg Tb, 1 TAB PO BID for 30 Days, #60 TAB 5 Refills Prov:LUIS ENRIQUE CORBIN MD 10/26/22 Ondansetron Odt 4MG Tab (ZOFRAN PO) 4 Mg Tb, 4 MG PO TID for 5 Days, #15 TAB ODT TAB-DISSOLVE IN MOUTH, THEN SWALLOW Prov:LUIS ENRIQUE CORBIN MD 10/26/22 Aspirin (TRE ASPIRIN EC LOW DOSE) 81 Mg Tab, 1 TAB PO DAILY, #30 TAB Prov:MARI SUAREZ MD 10/31/20 Reported Medications Ranolazine (Ranolazine ER) 500 Mg Tab, 500 MG PO BID, TAB 10/23/23 Montelukast Sodium (MONTELUKAST SODIUM) 10 Mg Tab, 1 TAB PO DAILY, #30 TAB 5 Refills 10/21/23 Dicyclomine Hcl (BENTYL CAPSULE) 10 Mg Cp, 2 CAP PO TIDPRN, #90 CAP 11 Refills 10/21/23 Loratadine (Claritin) 10 Mg Tab, 1 TAB PO DAILY, #30 TAB 5 Refills 10/21/23 Isosorbide Mononitrate (Isosorbide Mononitrate Er) 30 Mg Tab, 1 TAB PO DAILY, #30 TAB 5 Refills 10/21/23 Metoprolol Succinate (Toprol Xl) 25 Mg Tab, 1 TAB PO DAILY, #30 TAB 5 Refills 10/21/23 Duloxetine Hcl (Cymbalta) 60 Mg Cap, 1 CAP PO DAILY, #90 CAP 3 Refills 10/21/23 Atorvastatin Calcium (ATORVASTATIN CALCIUM) 40 Mg Tab, 1 TAB PO DAILY, #30 TAB 5 Refills 10/21/23 Temazepam (Temazepam) 30 Mg Cap, 1 CAP PO QPM PRN for FOR INSOMNIA, #30 CAP 10/29/20 Alprazolam (Alprazolam) 0.25 Mg Tab, 1 TAB PO TID, #90 TAB 10/29/20 Tramadol Hcl (Tramadol Hcl) 50 Mg Tab, 50 MG PO Q4HP PRN for MODERATE PAIN (4-6 PAIN SCALE), MG 10/29/20 Ibuprofen (Ibuprofen) 800 Mg Tab, 1 TAB PO PRN, #90 TAB 1 Refill 03/08/15 Information Source: Patient Mode of Arrival: Ambulatory Timing: Hours Duration: Since onset, Hours Prehospital treatment: None Quality: Aching Vomitus: None Stool: Green (Green) Severity: Moderate Recent: None Recent Hx of: None Pain Location: Epigastric, RUQ Associated sign and symptoms: Nausea, Abdominal Pain, Other (Dark green stool) Past Medical History PAST MEDICAL HISTORY: AFIB, Cancer, Depression, High Lipids, UTI'S Surgical History: Cholecystectomy, Hysterectomy Surgical History (Other): Urethra repair 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: No Pertinent 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 Family History Family History: Reviewed,noncontributory to illness, Unknown Social History Smoker: Non-Smoker Alcohol: Unknown Drugs: Denies Drug Use Lives In: Home Constitutional: denies: chills, diaphoresis, fatigue, fever, malaise, sweats, weakness, others EENTM: denies: blurred vision, double vision, ear bleeding, ear discharge, ear drainage, ear pain, ear ringing, eye pain, eye redness, hearing loss, mouth pain, mouth swelling, nasal discharge, nose bleeding, nose congestion, nose pain, photophobia, tearing, throat pain, throat swelling, voice changes, others Respiratory: denies: cough, hemoptysis, orthopnea, SOB at rest, shortness of breath, SOB with excertion, stridor, wheezing, others Cardiovascular: denies: chest pain, dizzy spells, diaphoresis, Dyspnea on exertion, edema, irregular heart beat, left arm pain, lightheadedness, palpitations, PND, syncope, others Gastrointestinal: reports: abdominal pain, others (Dark green stool); denies: abdomen distended, blood streaked bowels, constipated, diarrhea, dysphagia, difficulty swallowing, hematemesis, melena, nausea, poor appetite, poor fluid intake, rectal bleeding, rectal pain, vomiting Genitourinary: reports: flank pain (Right upper); denies: abnormal vagina bleeding, burning, dyspareunia, dysuria, frequency, hematuria, incontinence, pain, , vagina discharge, urgency, others Neurological: denies: dizziness, fainting, headache, left sided numbness, left sided weakness, numbness, paresthesia, pre-existing deficit, right sided numbne ss, right sided weakness, seizure, speech problems, tingling, tremors, weakness, others Musculoskeletal: denies: back pain, gout, joint pain, joint swelling, muscle pain, muscle stiffness, neck pain, others Integumetry: denies: bruises, change in color, change in hair/nails, dryness, laceration, lesions, lumps, rash, wounds, others Allergic/Immunocompromised: denies: Difficulty Healing, Frequent Infections, Hives, Itching, others Hematologic/Lymphatic: denies: anemia, blood clots, easy bleeding, easy bruising, swollen glands, others Endocrine: denies: excessive hunger, excessive sweating, excessive thirst, excessive urination, flushing, intolerance to cold, intolerance to heat, unexplained weight gain, unexplained weight loss, others Psychiatric: denies: anxiety, bipolar disorder, depression, hopeless, panic disorder, schizophrenia, sleepless, suicidal, others All Other Systems: Reviewed and Negative Physical Exam Exam Comments Diffuse right upper quadrant/epigastric palpation, no CVA bilaterally General Appearance: No Apparent Distress, Normal HEENT: Normal ENT Inspection, Pharynx Normal, TMs Normal Neck: Full Range of Motion, Non-Tender, Normal, Normal Inspection Respiratory: Chest Non-Tender, Lungs Clear, No Accessory Muscle Use, No Res piratory Distress, Normal Breath Sounds Cardiovascular: No Edema, No JVD, No Murmur, No Gallop, Normal Peripheral Pulses, Regular Rate/Rhythm Breast Exam: Deferred Gastrointestinal: No Organomegaly, Non Tender, No Pulsatile Mass, Normal Bowel Sounds, Soft Genitalia: Deferred Pelvic: Deferred Rectal: Deferred Extremities: No calf tenderness, Normal capillary refill, Normal inspection, Normal range of motion, Non-tender, No pedal edema Musculoskeletal : Apperance: Normal Neurologic: Alert, 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 Was a procedure done?: No GI differential Dx Differential Diagnosis: Other Other Differential Diagnosis PANCREATITIS, BOWEL OBSTRUCTION, GASTRITIS, ESOPHAGEAL HERNIA, CHOLECYSTITIS, AND A PILE COMMON BILE DUCT STONE, CONSTIPATION X-Ray, Labs, Meds, VS Vital Signs Date Time Temp Pulse Resp B/P (MAP) Pulse Ox O2 Delivery O2 Flow Rate FiO2 06/24/24 13:26 85 19 96 Room Air* 0 21 06/24/24 13:25 89 18 99 Room Air 06/24/24 13:25 98.5 89 18 116/49 (71) 99 98.5 06/24/24 13:18 89 17 116/49 06/24/24 12:53 86 06/24/24 12:29 98.5 86 20 141/58 (85) 97 98.5 06/24/24 12:17 86 Lab Test 06/24/24 13:34 06/24/24 12:43 06/24/24 12:05 Range/Units Troponin I High Sensitivity < 3 L < 3 L </=34 ng/L White Blood Count 10.4 4.4-10.8 10^3/uL Red Blood Count 5.39 H 4.0-5.20 10^6/uL Hemoglobin 13.8 12.2-16.2 g/dL Hematocrit 41.0 36.0-46.0 % Mean Corpuscular Volume 76.0 L 80.0-100.0 fL Mean Corpuscular Hemoglobin 25.6 L 28.0-32.0 pg Mean Corpuscular Hemoglobin Concent 33.7 32.0-36.0 g/dL Red Cell Distribution Width 15.4 H 11.8-14.3 % Platelet Count 337 140-450 10^3/uL Mean Platelet Volume 8.2 6.9-10.8 fL Neutrophils (%) (Auto) 70.2 37.0-80.0 % Lymphocytes (%) (Auto) 23.8 10.0-50.0 % Monocytes (%) (Auto) 4.6 0.0-12.0 % Eosinophils (%) (Auto) 1.0 0.0-7.0 % Basophils (%) (Auto) 0.4 0.0-2.0 % Neutrophils # (Auto) 7.3 1.6-8.6 10 ^3/uL Lymphocytes # (Auto) 2.5 0.4-5.4 10 ^3/uL Monocytes # (Auto) 0.5 0-1.3 10 ^3/uL Eosinophils # (Auto) 0.1 0-0.8 10 ^3/uL Basophils # (Auto) 0 0-0.2 10 ^3/uL Nucleated Red Blood Cells 0.1 % Sodium Level 142 136-145 mmol/L Potassium Level 4.2 3.5-5.1 mmol/L Chloride Level 107 98-107 mmol/L Carbon Dioxide Level 26 20-31 mmol/L Anion Gap 9 5-15 Blood Urea Nitrogen 14 9-23 mg/dL Creatinine 0.83 0.550-1.02 mg/dL Glomerular Filtration Rate Calc 81 >90 mL/min BUN/Creatinine Ratio 16.9 10.0-20.0 Serum Glucose 113 H 74-106 mg/dL Calcium Level 9.3 8.7-10.4 mg/dL Total Bilirubin 1.0 0.2-1.0 mg/dL Aspartate Amino Transferase (AST) 21 13-40 U/L Alanine Aminotransferase (ALT) 30 7-40 U/L Alkaline Phosphatase 135 H 46-116 U/L Total Protein 6.8 5.7-8.2 g/dL Albumin 4.5 3.2-4.8 g/dL Lipase 43 12-53 U/L Urine Color Light-yellow Yellow Urine Clarity Clear Clear Urine pH 7.0 5.0-9.0 Urine Specific [place] 1.007 1.001-1.035 Urine Protein Negative Negative Urine Ketones Negative Negative Urine Blood Trace H Negative /uL Urine Nitrite Negative Negative Urine Bilirubin Negative Negative Urine Urobilinogen Normal Negative mg/dL Urine Leukocyte Esterase 1+ Negative /uL Urine RBC 1 0 - 4 /hpf Urine Microscopic WBC 4 0-5 /HPF Urine Squamous Epithelial Cells None seen <5 /hpf Urine Bacteria None seen None Seen /hpf Urine Glucose Normal Normal mg/dL Current Medications Medications (Trade) Dose Ordered Sig/Dirk Route Start Time Stop Time Status Last Admin Ondansetron HCl (Zofran) 4 mg ONCE ONCE IV 06/24/24 12:45 06/24/24 12:46 DC 06/24/24 13:17 Morphine Sulfate 4 mg ONCE ONCE IV 06/24/24 12:45 06/24/24 12:46 DC 06/24/24 13:18 58-YEAR-OLD FEMALE PRESENTS HERE WITH RIGHT UPPER QUADRANT ABDOMINAL PAIN. SHE HAS A HISTORY OF CHOLECYSTECTOMY IN THE PAST. I CONSIDERED POSSIBLE PANCREATITIS, COMMON BILE DUCT STONE IN THE STUMP, SMALL-BOWEL OBSTRUCTION, PYELONEPHRITIS. AT THIS TIME SHE DOES NOT HAVE LEFT CVA TENDERNESS OR RIGHT CVA TENDERNESS. BLOOD WORK HAS BEEN DONE WHICH DOES DEMONSTRATE RESULTS ARE GENERALLY WITHIN NORMAL LIMITS. HOWEVER SHE DOES HAVE SOME TRACE BLOOD. PATIENT AT THIS TIME DOES PREFER TO TREAT FOR POSSIBLE UTI AND I WILL BE TREATING WITH KEFLEX. ADDITIONALLY A CT ABDOMEN PELVIS HAS BEEN DONE WITH EVIDENCE OF CONSTIPATION FOR WHICH I HAVE TOLD HER TO USE MIRALAX 1 CAP FULL MIXED WITH 8 OZ OF WATER 3 TIMES A DAY AND THEN 1 CAP FULL MIXED WITH 8 OZ OF WATER ONCE A DAY UNTIL SYMPTOMS ARE RESOLVED. SHE ALSO HAS EVIDENCE OF ESOPHAGEAL HERNIA. ADVISED HER TO SEE HER PCP AND POTENTIALLY GI OR SURGERY. PATIENT AGREEABLE TO THE PLAN. AT THIS TIME ABDOMEN IS SOFT NONTENDER DOUBT EMERGENT PATHOLOGY AT THIS TIME. PATIENT HAS BEEN GIVEN ZOFRAN MORPHINE IN THE ER.Diagnostic Imaging Report : [id number] Signed PATIENT: SOHAN KABAACCT: [id number] UNIT: [id number] : 1965 LOC: ER ROOM / BED: / AGE / SEX: 58 / F ADM STATUS: REG ER SERVICE 1236 ORDERING PHYSICIAN: NADEEN APODACA MD PROCEDURE(s): ABPL - CT AB PEL WO CON-NO ORAL OR IV REASON: RO SBO ORDER NUMBER(s): [id number], ACCESSION NUMBER(s): [id number] EXAM: CT Abdomen and Pelvis Without Intravenous Contrast CLINICAL INDICATION: RO SBO TECHNIQUE: Axial computed tomography images of the abdomen and pelvis without intravenous contrast. This CT exam was performed using one or more of the following dose reduction techniques: automated exposure control, adjustment of the mA and/or kV according to patient size, and/or use of iterative reconstruction technique. CONTRAST: RADIATION DOSE: CTDIvol = 27.1 mGy, DLP = 1422.36 mGy-cm COMPARISON: [facility] on DOS: 10/29/20 FINDINGS: LUNG BASES: Unremarkable. No mass. No consolidation. MEDIASTINUM: Small esophageal hiatal hernia. ABDOMEN: LIVER: Fatty infiltration of the liver. GALLBLADDER AND BILE DUCTS: Gallbladder is surgically absent. No ductal dilation. PANCREAS: Unremarkable. No ductal dilation. SPLEEN: Unremarkable. No splenomegaly. ADRENALS: Unremarkable. No mass. KIDNEYS AND URETERS: Unremarkable. No stones within either kidney. No hydronephrosis. STOMACH AND BOWEL: Fecal retention in the colon consistent with constipation. Colonic diverticulosis without acute diverticulitis. No obstruction. PELVIS: APPENDIX: No findings to suggest acute appendicitis. BLADDER: Unremarkable. No stones. REPRODUCTIVE: Unremarkable as visualized. ABDOMEN and PELVIS: INTRAPERITONEAL SPACE: Unremarkable. No free air. No significant fluid collection. BONES/JOINTS: Severe endplate degenerative changes and disc disease of L5-S1. No acute fracture. No dislocation. SOFT TISSUES: Umbilical hernia containing fat. VASCULATURE: Unremarkable. No abdominal aortic aneurysm. LYMPH NODES: Unremarkable. No enlarged lymph nodes. OTHER FINDINGS: . . IMPRESSION: 1. Small esophageal hiatal hernia. 2. Fecal retention in the colon consistent with constipation. 3. Umbilical hernia containing fat. 4. No obstructive uropathy. 5. Colonic diverticulosis without acute diverticulitis. ATED BY: BARRY GODOY MD DICTATED DATE/TIME: 06/24/241324 SIGNED BY: BARRY GODOY MD SIGNED DATE/TIME: 06/24/241324 CC: Time of 1ST Reevaluation: 13:05 Reevaluation 1ST: Unchanged Patient Education/Counseling: Diagnosis, Treatment, Prognosis Family Education/Counseling: No Family Present Departure 1 Departure Time of Disposition: 14:14 Impression: Primary Impression: Constipation Qualified Codes: K59.00 - Constipation, unspecified Additional Impressions: Esophageal hernia UTI (urinary tract infection) Qualified Codes: N30.01 - Acute cystitis with hematuria Umbilical hernia Qualified Codes: K42.9 - Umbilical hernia without obstruction or gangrene Disposition: 01 HOME / SELF CARE / HOMELESS Condition: Fair Additional Instructions: FOLLOW UP WITH THE PRIMARY CARE PHYSICIAN IN 2-3 DAYS. RETURN TO THE ER IF SYMPTOMS WORSEN OR PERSIST. TAKE 1 CAPFUL OF MIRALAX 3 TIMES A DAY FOR THE 1ST 2 DAYS. THEN YOU CAN TAKE 1 CAP FULL OF MIRALAX ONCE A DAY NEEDED UNTIL YOU BOWEL MOVEMENTS BECOME NORMAL. Diagnostic Imaging Report : [id number] Signed PATIENT: SOHAN KABA ACCT: [id number] UNIT: [id number] : 1965 LOC: ER ROOM / BED: / AGE / SEX: 58 / F ADM STATUS: REG ER SERVICE 1236 ORDERING PHYSICIAN: NADEEN APODACA MD PROCEDURE(s): ABPL - CT AB PEL WO CON-NO ORAL OR IV REASON: RO SBO ORDER NUMBER(s): [id number], ACCESSION NUMBER(s): [id number] EXAM: CT Abdomen and Pelvis Without Intravenous Contrast CLINICAL INDICATION: RO SBO TECHNIQUE: Axial computed tomography images of the abdomen and pelvis without intravenous contrast. This CT exam was performed using one or more of the following dose reduction techniques: automated exposure control, adjustment of the mA and/or kV according to patient size, and/or use of iterative reconstruction technique. CONTRAST: RADIATION DOSE: CTDIvol = 27.1 mGy, DLP = 1422.36 mGy-cm COMPARISON: [facility] on DOS: 10/29/20 FINDINGS: LUNG BASES: Unremarkable. No mass. No consolidation. MEDIASTINUM: Small esophageal hiatal hernia. ABDOMEN: LIVER: Fatty infiltration of the liver. GALLBLADDER AND BILE DUCTS: Gallbladder is surgically absent. No ductal dilation. PANCREAS: Unremarkable. No ductal dilation. SPLEEN: Unremarkable. No splenomegaly. ADRENALS: Unremarkable. No mass. KIDNEYS AND URETERS: Unremarkable. No stones within either kidney. No hydronephrosis. STOMACH AND BOWEL: Fecal retention in the colon consistent with constipation. Colonic diverticulosis without acute diverticulitis. No obstruction. PELVIS: APPENDIX: No findings to suggest acute appendicitis. BLADDER: Unremarkable. No stones. REPRODUCTIVE: Unremarkable as visualized. ABDOMEN and PELVIS: INTRAPERITONEAL SPACE: Unremarkable. No free air. No significant fluid collection. BONES/JOINTS: Severe endplate degenerative changes and disc disease of L5-S1. No acute fracture. No dislocation. SOFT TISSUES: Umbilical hernia containing fat. VASCULATURE: Unremarkable. No abdominal aortic aneurysm. LYMPH NODES: Unremarkable. No enlarged lymph nodes. OTHER FINDINGS: . . IMPRESSION: 1. Small esophageal hiatal hernia. 2. Fecal retention in the colon consistent with constipation. 3. Umbilical hernia containing fat. 4. No obstructive uropathy. 5. Colonic diverticulosis without acute diverticulitis. ATED BY: BARRY GODOY MD DICTATED DATE/TIME: 06/24/241324 SIGNED BY: BARRY GODOY MD SIGNED DATE/TIME: 06/24/24 1325 CC: e-Prescriptions Cephalexin (KEFLEX CAPSULE) 250 Mg Cp 500 MG PO Q12HR for 10 Days, #20 TAB Prov: NADEEN APODACA MD 06/24/24 Critical Care Note Critical Care Time?: No Stability Stability form required: No I personally scribed for NADEEN APODACA MD ([email or web address]) on 06/24/24 at 12:53. Electronically submitted by Jose Raul Phillips ([email or web address]). NADEEN APODACA MD June 24, 2024 12:53
[2024-06-24 12:55] LABS: Basophils # (auto) 0 10 ^3/uL (0-0.2); Basophils % (auto) 0.4 % (0.0-2.0); Eosinophils # (auto) 0.1 10 ^3/uL (0-0.8); Hemoglobin 13.8 g/dL (12.2-16.2); Lymphocytes # (auto) 2.5 10 ^3/uL (0.4-5.4); Monocytes # (auto) 0.5 10 ^3/uL (0-1.3); Neutrophils # (auto) 7.3 10 ^3/uL (1.6-8.6); White Blood Cell 10.4 10^3/uL (4.4-10.8)
[2024-06-24 12:57] LABS: Lymphocytes % (auto) 23.8 % (10.0-50.0); Mean Corpuscular Hemoglobin 25.6 pg (28.0-32.0); Mean Corpuscular Hgb Conc. 33.7 g/dL (32.0-36.0); Monocytes % (auto) 4.6 % (0.0-12.0); Neutrophils % (auto) 70.2 % (37.0-80.0); Nucleated Red Blood Cells % 0.1 %; Platelet Count (auto) 337 10^3/uL (140-450); Red Blood Cells 5.39 10^6/uL (4.0-5.20); Red Cell Distribution Width 15.4 % (11.8-14.3)
--- NOTE | 2024-06-24 13:13 | DVH ---
INDICATION: RO BILE DUCT STUMP STONE TECHNIQUE: Multiple real-time sonographic images of the right upper quadrant abdomen were obtained. COMPARISON: None FINDINGS: Liver is heterogeneous in echogenicity. The liver measures 18.6 cm. No intrahepatic biliary ductal dilatation is noted. Status post cholecystectomy. The common duct measures 0.6 cm and is unremarkable. The right kidney measures 9.3 cm. No hydronephrosis. The pancreas is not well visualized due to obscuration from bowel gas. IMPRESSION: 1. Status post cholecystectomy. 2. No bile duct stone is seen 3. Hepatic steatosis.
[2024-06-24 13:14] LABS: Alanine Aminotransferase 30 U/L (7-40); Albumin 4.5 g/dL (3.2-4.8); Anion Gap 9 (5-15); Aspartate Aminotransferase 21 U/L (13-40); BUN/Creatinine Ratio 16.9 (10.0-20.0); Blood Urea Nitrogen 14 mg/dL (9-23); Calcium 9.3 mg/dL (8.7-10.4); Carbon Dioxide 26 mmol/L (20-31); Lipase 43 U/L (12-53); Potassium 4.2 mmol/L (3.5-5.1); Sodium 142 mmol/L (136-145); Total Protein 6.8 g/dL (5.7-8.2)
[2024-06-24 13:17] LABS: Alkaline Phosphatase 135 U/L (46-116); Chloride 107 mmol/L (98-107); Glucose 113 mg/dL (74-106)
[2024-06-24] MEDS: ONDANSETRON HCL 4 MG/2 ML VIAL IV ONE (13:17)
[2024-06-24] MEDS: MORPHINE SULFATE 4 MG/ML SYR/VIAL IV ONE (13:18)
[2024-06-24 13:25] VITALS: TEMP 98.5
[2024-06-24 13:26] VITALS: PULSE 85; RESP 19; O2SAT 96
--- NOTE | 2024-06-24 13:27 | DVH ---
EXAM: CT Abdomen and Pelvis Without Intravenous Contrast CLINICAL INDICATION: RO SBO TECHNIQUE: Axial computed tomography images of the abdomen and pelvis without intravenous contrast. This CT exam was performed using one or more of the following dose reduction techniques: automated exposure control, adjustment of the mA and/or kV according to patient size, and/or use of iterative r econstruction technique. CONTRAST: RADIATION DOSE: CTDIvol = 27.1 mGy, DLP = 1422.36 mGy-cm COMPARISON: [facility] on DOS: 10/29/20 FINDINGS: LUNG BASES: Unremarkable. No mass. No consolidation. MEDIASTINUM: Small esophageal hiatal hernia. ABDOMEN: LIVER: Fatty infiltration of the liver. GALLBLADDER AND BILE DUCTS: Gallbladder is surgically absent. No ductal dilation. PANCREAS: Unremarkable. No ductal dilation. SPLEEN: Unremarkable. No splenomegaly. ADRENALS: Unremarkable. No mass. KIDNEYS AND URETERS: Unremarkable. No stones within either kidney. No hydronephrosis. STOMACH AND BOWEL: Fecal retention in the colon consistent with constipation. Colonic diverticulos is without acute diverticulitis. No obstruction. PELVIS: APPENDIX: No findings to suggest acute appendicitis. BLADDER: Unremarkable. No stones. REPRODUCTIVE: Unremarkable as visualized. ABDOMEN and PELVIS: INTRAPERITONEAL SPACE: Unremarkable. No free air. No significant fluid collection. BONES/JOINTS: Severe endplate degenerative changes and disc disease of L5-S1. No acute fracture. No dislocation. SOFT TISSUES: Umbilical hernia containing fat. VASCULATURE: Unremarkable. No abdominal aortic aneurysm. LYMPH NODES: Unremarkable. No enlarged lymph nodes. OTHER FINDINGS: . . IMPRESSION: 1. Small esophageal hiatal hernia. 2. Fecal retention in the colon consistent with constipation. 3. Umbilical hernia containing fat. 4. No obstructive uropathy. 5. Colonic diverticulosis without acute diverticulitis.
[2024-06-24 14:11] VITALS: BP 126/70; PULSE 80; RESP 20
[2024-06-24] MEDS ORDERED: CEPH250C PO (14:16)
--- NOTE | 2024-06-26 10:36 | ECG ---
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
== END 2024-06-24 14:34 | disposition home or self-care (01) ==
LOC: ER 11:56
DX: K59.00 Constipation, unspecified (principal); K44.9 Diaphragmatic hernia without obstruction or gangrene; K42.9 Umbilical hernia without obstruction or gangrene; N39.0 Urinary tract infection, site not specified; I48.91 Unspecified atrial fibrillation; F32.A Depression, unspecified; E78.5 Hyperlipidemia, unspecified; Z90.49 Acquired absence of other specified parts of digestive tract; Z90.710 Acquired absence of both cervix and uterus; Z79.1 Long term (current) use of non-steroidal anti-inflammatories (NSAID); Z79.52 Long term (current) use of systemic steroids; Z79.82 Long term (current) use of aspirin; Z79.899 Other long term (current) drug therapy; Z98.890 Other specified postprocedural states; Z88.8 Allergy status to other drugs, medicaments and biological substances
CPT/HCPCS: 36415; 74176; 76705; 80053; 81001; 83690; 84484; 85025; 93005; 96374; 96375; 99285; J2270; J2405

== ENCOUNTER 2024-07-25 03:59 | Emergency (ER) | payer BC ==
[~2024-07-25] VITALS: Ht 167.6 cm; Wt 113.0 kg
[~2024-07-25 03:59] MED LIST changes: +CEPH250C PO
--- NOTE | 2024-07-25 04:37 | ED.PDOC ---
History of Present Illness HPI Comments 58 year old female presents to the ED with a chief complaint of dizziness onset today (07/25/24) about 1 hour prior to ED arrival. Patient states she was laying down when she began experiencing dizziness, shortness of breath, generalized weakness. Patient states she has experienced similar episodes in the past, she was able to drive herself to ED. PMHx cancer, a-fib, HLD, UTI, depression. Denies chest pain, headache, cough, cold, congestion, dyusira, hematuria, nausea, vomiting, diarrhea, abdominal pain. No other symptoms or modifying factors present at this time. Chief Complaint: Dizziness Time Seen by MD: 04:25 Primary Care Provider: Deborah Reviewed Notes: Medications, Allergies Allergies: Coded Allergies: Lansoprazole (Verified Allergy, Unknown, 03/08/15) Home Meds Active Scripts Cephalexin (KEFLEX CAPSULE) 250 Mg Cp, 500 MG PO Q12HR for 10 Days, #20 TAB Prov:NADEEN APODACA MD 06/24/24 Albuterol Sulfate (Albuterol Sulfate (5 mg/ml) 0.5%) 1 Neb Neb, 1 NEB IN Q6HP PRN for 30 Days, #120 INH Prov:MELANIE BALDWIN MD 10/25/23 Doxycycline Monohydrate (Doxycycline Monohydrate) 100 Mg Cap, 1 CAP PO BID, #14 CAP Prov:MELANIE BALDWIN MD 10/25/23 Methylprednisolone (Medrol Dosepak) 4 Mg Harsh, 4 MG PO UD, #21 TAB UAD Prov:MELANIE BALDWIN MD 10/25/23 Divalproex Sodium (Depakote Er) 250 Mg Tab, 1 TAB PO QPM, #30 TAB 0 Refills Prov:MELANIE BALDWIN MD 10/25/23 Prednisone (Prednisone) 10 Mg Harsh, 20 MG PO BID for 10 Days, #20 PACK Prov:LALY ELISE MD 10/21/23 Albuterol Sulfate (Albuterol Sulfate) 0.083 % Neb, 1 VIAL NEB Q4HPRN PRN, #50 VIAL Prov:LALY ELISE MD 10/21/23 Meloxicam (Meloxicam) 7.5 Mg Tab, 1 TAB PO TID, #30 TAB Prov:FAUSTINA GARCIAS 12/19/22 Famotidine (PEPCID TABLET) 20 Mg Tb, 1 TAB PO BID for 30 Days, #60 TAB 5 Refills Prov:LUIS ENRIQUE CORBIN MD 10/26/22 Ondansetron Odt 4MG Tab (ZOFRAN PO) 4 Mg Tb, 4 MG PO TID for 5 Days, #15 TAB ODT TAB-DISSOLVE IN MOUTH, THEN SWALLOW Prov:LUIS ENRIQUE CORBIN MD 10/26/22 Aspirin (TRE ASPIRIN EC LOW DOSE) 81 Mg Tab, 1 TAB PO DAILY, #30 TAB Prov:MARI SUAREZ MD 10/31/20 Reported Medications Ranolazine (Ranolazine ER) 500 Mg Tab, 500 MG PO BID, TAB 10/23/23 Montelukast Sodium (MONTELUKAST SODIUM) 10 Mg Tab, 1 TAB PO DAILY, #30 TAB 5 Refills 10/21/23 Dicyclomine Hcl (BENTYL CAPSULE) 10 Mg Cp, 2 CAP PO TIDPRN, #90 CAP 11 Refills 10/21/23 Loratadine (Claritin) 10 Mg Tab, 1 TAB PO DAILY, #30 TAB 5 Refills 10/21/23 Isosorbide Mononitrate (Isosorbide Mononitrate Er) 30 Mg Tab, 1 TAB PO DAILY, #30 TAB 5 Refills 10/21/23 Metoprolol Succinate (Toprol Xl) 25 Mg Tab, 1 TAB PO DAILY, #30 TAB 5 Refills 10/21/23 Duloxetine Hcl (Cymbalta) 60 Mg Cap, 1 CAP PO DAILY, #90 CAP 3 Refills 10/21/23 Atorvastatin Calcium (ATORVASTATIN CALCIUM) 40 Mg Tab, 1 TAB PO DAILY, #30 TAB 5 Refills 10/21/23 Temazepam (Temazepam) 30 Mg Cap, 1 CAP PO QPM PRN for FOR INSOMNIA, #30 CAP 10/29/20 Alprazolam (Alprazolam) 0.25 Mg Tab, 1 TAB PO TID, #90 TAB 10/29/20 Tramadol Hcl (Tramadol Hcl) 50 Mg Tab, 50 MG PO Q4HP PRN for MODERATE PAIN (4-6 PAIN SCALE), MG 10/29/20 Ibuprofen (Ibuprofen) 800 Mg Tab, 1 TAB PO PRN, #90 TAB 1 Refill 03/08/15 Information Source: Patient Mode of Arrival: Ambulatory Severity: Moderate Timing: Hours Duration: Since onset Prehospital treatment: None Past Medical History PAST MEDICAL HISTORY: AFIB, Cancer, Depression, High Lipids, UTI'S Surgical History: Cholecystectomy, Hysterectomy 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 Family History Family History: Reviewed,noncontributory to illness, Unknown Social History Smoker: Non-Smoker Alcohol: Unknown Drugs: Denies Drug Use Lives In: Home Constitutional: reports: weakness; denies: chills, diaphoresis, fatigue, fever, malaise, sweats, others EENTM: denies: blurred vision, double vision, ear bleeding, ear discharge, ear drainage, ear pain, ear ringing, eye pain, eye redness, hearing loss, mouth pain, mouth swelling, nasal discharge, nose bleeding, nose congestion, nose pain, photophobia, tearing, throat pain, throat swelling, voice changes, others Respiratory: reports: shortness of breath; denies: cough, hemoptysis, orthopnea, SOB at rest, SOB with excertion, stridor, wheezing, others Cardiovascular: denies: chest pain, dizzy spells, diaphoresis, Dyspnea on exertion, edema, irregular heart beat, left arm pain, lightheadedness, palpitations, PND, syncope, others Gastrointestinal: denies: abdomen distended, abdominal pain, blood streaked bowels, constipated, diarrhea, dysphagia, difficulty swallowing, hematemesis, melena, nausea, poor appetite, poor fluid intake, rectal bleeding, rectal pain, vomiting, others Genitourinary: denies: abnormal vagina bleeding, burning, dyspareunia, dysuria, flank pain, frequency, hematuria, incontinence, pain, , vagina discharge, urgency, others Neurological: reports: dizziness, weakness; denies: fainting, headache, left sided numbness, left sided weakness, numbness, paresthesia, pre-existing deficit, right sided numbness, right sided weakness, seizure, speech problems, tingling, tremors, others Musculoskeletal: denies: back pain, gout, joint pain, joint swelling, muscle pain, muscle stiffness, neck pain, others Integumetry: denies: bruises, change in color, change in hair/nails, dryness, laceration, lesions, lumps, rash, wounds, others Allergic/Immunocompromised: denies: Difficulty Healing, Frequent Infections, Hives, Itching, others Hematologic/Lymphatic: denies: anemia, blood clots, easy bleeding, easy bruising, swollen glands, others Endocrine: denies: excessive hunger, excessive sweating, excessive thirst, excessive urination, flushing, intolerance to cold, intolerance to heat, unexplained weight gain, unexplained weight loss, others Psychiatric: denies: anxiety, bipolar disorder, depression, hopeless, panic disorder, schizophrenia, sleepless, suicidal, others All Other Systems: Reviewed and Negative Physical Exam General Appearance: Normal HEENT: Normal ENT Inspection, Pharynx Normal, TMs Normal Neck: Full Range of Motion, Non-Tender, Normal, Normal Inspection Respiratory: Chest Non-Tender, Lungs Clear, No Accessory Muscle Use, No Respiratory Distress, Normal Breath Sounds Cardiovascular: No Edema, No JVD, No Murmur, No Gallop, Normal Peripheral Pulses, Regular Rate/Rhythm Breast Exam: Deferred Gastrointestinal: No Organomegaly, Non Tender, No Pulsatile Mass, Normal Bowel Sounds, Soft Genitalia: Deferred Pelvic: Deferred Rectal: Deferred Extremities: No calf tenderness, Normal capillary refill, Normal inspection, Normal range of motion, Non-tender, No pedal edema Musculoskeletal : Apperance: Normal Neurologic: Alert, 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 Was a procedure done?: No Differential Dx Considerations may include: Differential diagnosis includes but is not limited to: coronary ischemia, dehydration, sepsis, electrolyte abnormality, symptomatic anemia, hypovolemia and others X-Ray, Labs, Meds, VS Vital Signs Date Time Temp Pulse Resp B/P (MAP) Pulse Ox O2 Delivery O2 Flow Rate FiO2 07/25/24 09:30 97.9 73 20 137/47 (77) 95 97.9 07/25/24 07:26 74 16 94 Room Air 07/25/24 07:26 97.9 74 16 125/48 (73) 94 97.9 07/25/24 05:35 76 07/25/24 04:33 98.0 77 20 112/52 (72) 98 98.0 Lab Test 07/25/24 08:05 07/25/24 06:12 07/25/24 05:11 Range/Units Troponin I High Sensitivity < 3 L < 3 L < 3 L </=34 ng/L White Blood Count 9.6 4.4-10.8 10^3/uL Red Blood Count 5.35 H 4.0-5.20 10^6/uL Hemoglobin 13.8 12.2-16.2 g/dL Hematocrit 40.8 36.0-46.0 % Mean Corpuscular Volume 76.4 L 80.0-100.0 fL Mean Corpuscular Hemoglobin 25.8 L 28.0-32.0 pg Mean Corpuscular Hemoglobin Concent 33.7 32.0-36.0 g/dL Red Cell Distribution Width 15.3 H 11.8-14.3 % Platelet Count 305 140-450 10^3/uL Mean Platelet Volume 8.1 6.9-10.8 fL Neutrophils (%) (Auto) 66.5 37.0-80.0 % Lymphocytes (%) (Auto) 26.3 10.0-50.0 % Monocytes (%) (Auto) 4.8 0.0-12.0 % Eosinophils (%) (Auto) 1.9 0.0-7.0 % Basophils (%) (Auto) 0.5 0.0-2.0 % Neutrophils # (Auto) 6.4 1.6-8.6 10 ^3/uL Lymphocytes # (Auto) 2.5 0.4-5.4 10 ^3/uL Monocytes # (Auto) 0.5 0-1.3 10 ^3/uL Eosinophils # (Auto) 0.2 0-0.8 10 ^3/uL Basophils # (Auto) 0 0-0.2 10 ^3/uL Nucleated Red Blood Cells 0.0 % Sodium Level 142 136-145 mmol/L Potassium Level 4.0 3.5-5.1 mmol/L Chloride Level 108 H 98-107 mmol/L Carbon Dioxide Level 24 20-31 mmol/L Anion Gap 10 5-15 Blood Urea Nitrogen 17 9-23 mg/dL Creatinine 0.76 0.550-1.02 mg/dL Glomerular Filtration Rate Calc 90 >90 mL/min BUN/Creatinine Ratio 22.4 H 10.0-20.0 Serum Glucose 122 H 74-106 mg/dL Calcium Level 9.8 8.7-10.4 mg/dL Magnesium Level 2.2 1.6-2.6 mg/dL Total Bilirubin 1.1 H 0.2-1.0 mg/dL Aspartate Amino Transferase (AST) 22 <34 U/L Alanine Aminotransferase (ALT) 29 7-40 U/L Alkaline Phosphatase 148 H 46-116 U/L Total Protein 6.7 5.7-8.2 g/dL Albumin 4.3 3.2-4.8 g/dL Time of 1ST Reevaluation: 04:55 Reevaluation 1ST: Improved Patient Education/Counseling: Diagnosis, Treatment, Prognosis Family Education/Counseling: No Family Present SEPSIS Sepsis Screen Orders/Vitals/Labs Physician Orders Electrocardigram (07/25/24 04:20) Head Without Contrast (07/25/24 07:30) Vital Signs Date Time Temp Pulse Resp B/P (MAP) Pulse Ox O2 Delivery O2 Flow Rate FiO2 07/25/24 09:30 97.9 73 20 137/47 (77) 95 97.9 07/25/24 07:26 74 16 94 Room Air 07/25/24 07:26 97.9 74 16 125/48 (73) 94 97.9 07/25/24 05:35 76 07/25/24 04:33 98.0 77 20 112/52 (72) 98 98.0 Laboratory Tests Test 07/25/24 05:11 White Blood Count 9.6 10^3/uL (4.4-10.8) Departure 1 Departure Time of Disposition: 06:00 Impression: Primary Impression: Paroxysmal atrial fibrillation Disposition: 01 HOME / SELF CARE / HOMELESS Condition: Stable Discharged With: Self Critical Care Note Critical Care Time?: No Stability Stability form required: No Heart Score Heart Score: Heart Score Response (Comments) Value History Slightly Suspicious 0 EKG Normal 0 Age 45-64 1 Risk Factors 1 or 2 risk factors 1 Troponin Normal limit 0 Total 2 I personally scribed for LALY ELISE MD ([email or web address]) on 07/25/24 at 04:37. Electronically submitted by Corinna Childs ([email or web address]). I personally scribed for LALY ELISE MD ([email or web address]) on 07/25/24 at 04:44. Electronically submitted by Corinna Childs ([email or web address]). LALY ELISE MD Jul 25, 2024 04:37
[2024-07-25 05:43] LABS: Basophils # (auto) 0 10 ^3/uL (0-0.2); Basophils % (auto) 0.5 % (0.0-2.0); Eosinophils # (auto) 0.2 10 ^3/uL (0-0.8); Eosinophils % (auto) 1.9 % (0.0-7.0); Hematocrit 40.8 % (36.0-46.0); Hemoglobin 13.8 g/dL (12.2-16.2); Lymphocytes # (auto) 2.5 10 ^3/uL (0.4-5.4); Lymphocytes % (auto) 26.3 % (10.0-50.0); Mean Corpuscular Hemoglobin 25.8 pg (28.0-32.0); Mean Corpuscular Hgb Conc. 33.7 g/dL (32.0-36.0); Mean Corpuscular Volume 76.4 fL (80.0-100.0); Monocytes # (auto) 0.5 10 ^3/uL (0-1.3); Monocytes % (auto) 4.8 % (0.0-12.0); Neutrophils # (auto) 6.4 10 ^3/uL (1.6-8.6); Neutrophils % (auto) 66.5 % (37.0-80.0); Platelet Count (auto) 305 10^3/uL (140-450); Red Blood Cells 5.35 10^6/uL (4.0-5.20); Red Cell Distribution Width 15.3 % (11.8-14.3); White Blood Cell 9.6 10^3/uL (4.4-10.8)
[2024-07-25 06:05] LABS: Alanine Aminotransferase 29 U/L (7-40); Albumin 4.3 g/dL (3.2-4.8); Anion Gap 10 (5-15); Aspartate Aminotransferase 22 U/L (<34); BUN/Creatinine Ratio 22.4 (10.0-20.0); Blood Urea Nitrogen 17 mg/dL (9-23); Calcium 9.8 mg/dL (8.7-10.4); Carbon Dioxide 24 mmol/L (20-31); Magnesium 2.2 mg/dL (1.6-2.6); Sodium 142 mmol/L (136-145); Total Protein 6.7 g/dL (5.7-8.2)
[2024-07-25 06:06] LABS: Bilirubin, Total 1.1 mg/dL (0.2-1.0)
[2024-07-25 06:08] LABS: Alkaline Phosphatase 148 U/L (46-116); Chloride 108 mmol/L (98-107); Glucose 122 mg/dL (74-106)
[2024-07-25 09:30] VITALS: BP 137/47; PULSE 73; RESP 20; TEMP 97.9; O2SAT 95
--- NOTE | 2024-07-25 09:54 | DVH ---
EXAM: CT HEAD WITHOUT CONTRAST HISTORY: dizziness COMPARISON: CT HEAD WITHOUT CONTRAST on DOS: 10/23/23 TECHNIQUE: Axial images of the head were obtained and reformatted in coronal and sagittal planes. All CT scans at this medical facility are performed using dose modulation techniques as appropriate t o a performed exam including the following: Automated exposure control was utilized; adjustment of th e MA and/or KV according to patient size; and use of iterative reconstruction technique. CT Dose: CTDI volume is 58.85 mGy. Dose-length product is 943.25 mGy*cm FINDINGS: There is no evidence of acute intracranial hemorrhage, mass, mass effect midline shift. There is no h ydrocephalus or extra-axial fluid collection. Mckeon-white matter differentiation is maintained. The visualized paranasal sinuses and mastoid air cells are clear. The calvarium is intact. IMPRESSION: 1. No acute intracranial process. HS:Y
--- NOTE | 2024-07-26 13:40 | ECG ---
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
== END 2024-07-25 09:47 | disposition left against medical advice (07) ==
LOC: ER 03:59
DX: I48.0 Paroxysmal atrial fibrillation (principal); E78.5 Hyperlipidemia, unspecified; F32.A Depression, unspecified; Z90.710 Acquired absence of both cervix and uterus; Z90.49 Acquired absence of other specified parts of digestive tract; Z79.899 Other long term (current) drug therapy; Z88.1 Allergy status to other antibiotic agents
CPT/HCPCS: 36415; 70450; 80053; 83735; 84484; 85025; 93005